=== PATIENT | female | born 1980 | race Caucasian/White ===

== ENCOUNTER 2016-09-13 11:13 | Emergency (ER) | payer OTHER ==
[~2016-09-13] VITALS: Ht 167.6 cm; Wt 111.2 kg
[2016-09-13 11:16] VITALS: BP 127/83
== END 2016-09-13 13:12 | disposition home or self-care (01) ==
LOC: ED 13:06
DX: S82.64XA Nondisplaced fracture of lateral malleolus of right fibula, initial encounter for closed fracture (principal); W10.8XXA Fall (on) (from) other stairs and steps, initial encounter; Y93.89 Activity, other specified; Y92.89 Other specified places as the place of occurrence of the external cause; Y99.0 Civilian activity done for income or pay
CPT/HCPCS: 29515; 99284